=== PATIENT | female | born 1985 | race Caucasian/White ===

== ENCOUNTER 2018-12-07 05:37 | Day surgery (SDC) | payer OTHER ==
[~2018-12-07] VITALS: Ht 170.2 cm; Wt 127.5 kg
--- NOTE | ~2018-12-07 | O ---
[facility] [place] [address] OPERATIVE REPORT Name: BARBARARADHA Jack Room #: 150-7 [facility]#: [id number] Admission: 12/07/18 ������������������ Attend Phys: Jean-Claude Aaron MD Discharge: ������������������ Date of : 85 Report #: [id number] THIS REPORT FOR: //name// CC: Michelle Aaron DATE OF SERVICE: 12/07/[address] Michelle Nielson. PREOPERATIVE DIAGNOSIS: Right breast mass. POSTOPERATIVE DIAGNOSIS: Right breast mass. PROCEDURE: Right breast lumpectomy. SURGEON: Jean-Claude Aaron MD. ANESTHESIA: Local IV sedation. DESCRIPTION OF PROCEDURE: The patient was brought to the operating room, placed on the operative table in the supine position. Sequential compression devices were in place for DVT prophylaxis. There was no indication for preoperative antibiotics. The patient underwent IV sedation. The right breast was then prepped and draped in a sterile fashion. Skin and subcutaneous tissue overlying this mass was then infiltrated with 0.5% Marcaine and 1% Xylocaine in a 1:1 mixture. A radial skin incision was performed over the mass using a #15 scalpel blade. Hemostasis obtained using electrocautery. Dissection was carried down through subcutaneous tissue to this mass, which measured about 4.5 cm x 3 cm. It was completely excised and sent as specimen to pathology. Meticulous hemostasis was checked and obtained in the area using the electrocautery and found to be intact. The deep and superficial subcutaneous tissue was then reapproximated using simple interrupted 2-0 chromic sutures and the skin then closed with a running 4-0 subcuticular Vicryl stitch. The wound was then dressed with Mastisol, 1/2-inch Steri-Strips cut in half, Telfa, 4 x 4 gauze, sponge and tape. The patient was then awakened from the IV sedation, taken to recovery room in good condition. Estimated blood loss was approximately 10 mL and the patient tolerated procedure well. All sponge, lap and instrument counts correct x 2. ��������������������������������������������� ���������������������������������������� By: ��������������������������������������������� 1516 [id number] Jean-Claude Aaron MD /nt
[~2018-12-07 05:37] MED LIST: ADIPEX-P37.5 M1 PO; CELEXA 10 MG TA10 M1 PO; CLONAZEPAM; IBUPROFEN 200200 M1 PO; NORCO 5-325 TA1 EACH PO
[2018-12-07 11:47] LABS: HEMATOCRIT 35.7 % (37.0-47.0); HEMOGLOBIN 11.8 gm/dL (12.0-15.0); MCV 81.9 fL (80.0-100.0); RBC 4.36 mil/uL (4.20-5.00); RDW 15.8 % (10.5-14.5); WBC 8.7 thou/uL (4.0-11.0)
[2018-12-07 12:30] VITALS: BP 114/61
--- NOTE | 2018-12-07 15:19 | H ---
[facility] [place] [address] HISTORY AND PHYSICAL Name: JIMENEZRADHA Room #: 150-7 [facility]..#: [id number] Admission: 12/07/18 ������������������ Attend Phys: Jean-Claude Aaron MD Discharge: ������������������ Date of : 85 Report #: [id number] THIS REPORT FOR: //name// CC: Michelle Aaron PATIENT OF: Dr. Michelle Nielson. DATE OF ADMISSION AND SURGERY: 12/07/2018 CHIEF COMPLAINT: "Painful lump in my right breast." HISTORY OF PRESENT ILLNESS: The patient is a 33-year-old morbidly obese white female who about a year ago Dr. Nielson noticed a mass in the right breast. She was sent for mammogram and ultrasound and had a core needle biopsy, which returned showing this as a fibroadenoma. She opted at that time to observe, recently has been becoming more tender and she thinks it has gotten larger. She was sent for a followup ultrasound, which confirmed the fact that this was larger. She was then sent for surgical consultation. After full discussion with the patient, the diagnosis, prognosis, treatment options, she is now opting for resection. PAST MEDICAL HISTORY: Anemia, gastroesophageal reflux disease, hypercholesterolemia, and morbid obesity. PAST SURGICAL HISTORY: Tonsillectomy, cholecystectomy in 2007, hysterectomy in 2012, gastric sleeve surgery in 2013. MEDICATIONS: Ibuprofen, phentermine. ALLERGIES: No known drug allergies. FAMILY HISTORY: Noncontributory. SOCIAL HISTORY: Does not smoke. Drinks alcohol occasionally. REVIEW OF SYSTEMS: Pertinent positives as above. Full review of systems otherwise negative. PHYSICAL EXAMINATION: GENERAL: This is a well-developed, well-nourished, morbidly obese white female, in no acute distress. VITAL SIGNS: Stable. She is afebrile. Height is 5 feet 7 inches, weight is 288 pounds. BMI of 45. HEENT: Sclerae are nonicteric. Mucous membranes moist and pink. NECK: There is no adenopathy. [facility] [address] [place] [address] HISTORY AND PHYSICAL Name: RADHA JIMENEZ Room #: 150-7 [facility] M.R.#: [id number] Admission: 12/07/18 ������������������ Attend Phys: Jean-Claude Aaron MD Discharge: ������������������ Date of : 85 Report #: [id number] LUNGS: Clear to auscultation bilaterally. CARDIOVASCULAR: Regular rate and rhythm. No murmurs, S3, S4. BREASTS: Bilateral breast exam was performed, which fills up at 8-9 o'clock position of the right breast, palpable, smooth, mobile, tender mass consistent with a fibroadenoma. No other palpable suspicious masses. She does have dense fibrocystic breast tissue bilaterally. No axillary adenopathy. ABDOMEN: Morbidly obese, soft, flat, nontender, no palpable mass, no organomegaly. There is a healed abdominal surgery incision scars. EXTREMITIES: No clubbing, cyanosis or edema. NEUROLOGIC: Intact with a clear mental status. No focal motor or sensory deficits. IMPRESSION: A 33-year-old white female with right breast mass, most likely symptomatic fibroadenoma. I fully discussed with the patient the diagnosis, prognosis, and treatment options and because of this growing and getting more painful and symptomatic. I do think excision of this mass is indicated. She states she understands and wishes to proceed with surgery. PLAN: We will perform right breast lumpectomy under local IV sedation as an outpatient at [facility]. The procedure and its risks, benefits and possible complications fully discussed with the patient, she states she understands and agrees with proposed surgery. ��������������������������������������������� <ELECTRONICALLY SIGNED> ���������������������������������������� By: Jean-Claude Aaron MD ��������������������������������������������� 12/07/18 1519 [id number] Jean-Claude Aaron MD /nt
[2018-12-07] MEDS ORDERED: NORCO 5-325 TA1 EACH PO (15:20)
--- NOTE | 2018-12-09 11:06 | PATH ---
[facility] [address] [place] [address] PATHOLOGY RPT PROCEDURE Name: ROSALIE JIMENEZ Room #: [facility] M.R.#: [id number] ������������������ Admission: 12/07/18 ������������������ Date of : 85 Discharge: 12/07/18 Report #: [id number] Path Case #: [id number] [facility] Accession Number: [id number] . 01 Material submitted: . breast - RIGHT BREAST LUMPECTOMY. Modifiers: right . 01 Clinical history: . Right breast mass . 02 Diagnosis: Breast, right breast mass, lumpectomy: - Benign phyllodes tumor. - Present focally at the inked margin. (IUV:pit 12/08/2018) QTP/12/08/2018 . 02 Comment: Examination shows a neoplasm comprised of epithelial glandular elements as well as mild stromal hypercellularity. Focal nuclear atypia as well as rare mitotic figures ranging from 1 to 2/10 high power reynolds are noted. 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 . Lane Attendant slides were co-reviewed by Dr. Yeyo Felipe who concurs with my diagnosis. (IUV:pit 12/08/2018) . 02 Electronically signed: . Pat Squires MD, Pathologist NPI- [id number] . 01 Gross description: . The specimen is received in formalin, labeled "Rosalie Jimenez, right breast lumpectomy", is an unoriented, roughly ovoid, rubbery, predominantly fibrous tissue weighing 8 g and measuring 3.5 x 2.4 x 1.7 cm. The specimen is inked black, serially sectioned to show almazan-white cut surface. The specimen is entirely submitted (contiguous sections), in A1-A7. The specimen was excised at: Not provided, placed in formalin: Not provided, formalin exposure: Cannot be determined. (SWS; 12/07/2018) SHS/SHS . 02 Pathologist provided ICD-10: D48.61 . 02 CPT . [address] [address] PATHOLOGY RPT PROCEDURE Name: ROSALIE JIMENEZ Room #: [facility]P [facility] M.R.#: [id number] ������������������ Admission: 12/07/18 ������������������ Date of : 85 Discharge: 12/07/18 Report #: [id number] Path Case #: [id number] Specimen Comment: A courtesy copy of this report has been sent to [facility] Comment: [phone], . Specimen Comment: Report sent to / DR BRAR Performed at: [address], [place], [place] [id number] MD Brent Varma MD Phone: [phone] Performed at: [address] [id number] MD Pat Squires MD Phone: [phone]
== END 2018-12-07 16:15 | disposition home or self-care (01) ==
LOC: TBA 05:37 → OR 05:37
PROVIDERS: Surgery
DX: D24.1 Benign neoplasm of right breast (principal); E78.00 Pure hypercholesterolemia, unspecified; K21.9 Gastro-esophageal reflux disease without esophagitis; D64.9 Anemia, unspecified; E66.01 Morbid (severe) obesity due to excess calories; Z90.49 Acquired absence of other specified parts of digestive tract; Z90.710 Acquired absence of both cervix and uterus; Z98.84 Bariatric surgery status; Z79.899 Other long term (current) drug therapy; Z68.42 Body mass index [BMI] 45.0-49.9, adult
CPT/HCPCS: 50010; 50101; 50386; 50417; 56524; 56525; 62110; 62850; 70005